=== PATIENT | male | born 1935 | race Caucasian/White ===

== ENCOUNTER 2016-10-05 10:36 | Inpatient (IN) | payer MEDICARE ==
[~2016-10-05] VITALS: Ht 188 cm; Wt 81.6 kg
[~2016-10-05 10:36] MED LIST: FOLIC ACID 1 MG1 MG PO
[2016-10-05 11:57] LABS: HEMOGLOBIN 8.4 gm/dl (14.0-17.5); RED BLOOD COUNT 2.51 M/UL (4.20-5.50)
[2016-10-05 17:33] LABS: WHITE BLOOD COUNT 53.4 K/UL (4.5-11.0)
[2016-10-05] MEDS ORDERED: CATAPRES 0.1MG0.1 MG PO (23:55)
[2016-10-05] MEDS ORDERED: NORVASC 5 MG TAB5 MG PO (23:56)
[2016-10-05] MEDS ORDERED: AVODART 0.5 MG0.5 MG PO (23:56)
[2016-10-05] MEDS ORDERED: ALPRAZOLAM0.5 MG PO (23:58)
[2016-10-05] MEDS ORDERED: TENORMIN 50 MG50 MG PO (23:58)
[2016-10-05] MEDS ORDERED: SIMVASTATIN40 MG PO (23:59)
[2016-10-06] MEDS ORDERED: CARDURA 2MG TAB2 MG PO
[2016-10-06] MEDS ORDERED: ASPIR 8181 MG PO (00:01)
[2016-10-06] MEDS ORDERED: HYDROXYUREA500 MG PO (00:02)
[2016-10-06] MEDS ORDERED: ALDACTONE 25MG25 MG PO (00:03)
[2016-10-06 04:52] LABS: HEMOGLOBIN 8.7 gm/dl (14.0-17.5); RED BLOOD COUNT 2.58 M/UL (4.20-5.50)
[2016-10-06 05:35] LABS: WHITE BLOOD COUNT 48.4 K/UL (4.5-11.0)
[2016-10-07 04:54] LABS: HEMOGLOBIN 8.2 gm/dl (14.0-17.5); RED BLOOD COUNT 2.44 M/UL (4.20-5.50)
[2016-10-07 05:22] LABS: WHITE BLOOD COUNT 39.5 K/UL (4.5-11.0)
[2016-10-08 04:44] LABS: RED BLOOD COUNT 2.39 M/UL (4.20-5.50)
[2016-10-08 04:45] LABS: WHITE BLOOD COUNT 37.3 K/UL (4.5-11.0)
[2016-10-09 03:53] LABS: HEMOGLOBIN 7.8 gm/dl (14.0-17.5); RED BLOOD COUNT 2.34 M/UL (4.20-5.50)
[2016-10-09 04:28] LABS: WHITE BLOOD COUNT 39.1 K/UL (4.5-11.0)
[2016-10-10 06:00] LABS: HEMOGLOBIN 7.6 gm/dl (14.0-17.5); RED BLOOD COUNT 2.34 M/UL (4.20-5.50)
[2016-10-10 06:15] LABS: WHITE BLOOD COUNT 41.4 K/UL (4.5-11.0)
[2016-10-11 04:50] LABS: RED BLOOD COUNT 2.42 M/UL (4.20-5.50)
[2016-10-11] MEDS ORDERED: CATAPRES 0.1MG0.1 MG PO (12:43)
[2016-10-11] MEDS ORDERED: LASIX20 MG PO (12:44)
[2016-10-11] MEDS ORDERED: ENSURE ORIGINA237 ML PO (12:45)
[2017-02-07] MEDS ORDERED: MEGACE TAB 40 M40 MG PO (17:51)
[2017-02-07] MEDS ORDERED: LORTAB 5-325 M1 EACH PO (17:53)
[2017-02-07] MEDS ORDERED: BENADRYL 25MG C25 MG PO (17:53)
[2017-03-14] MEDS ORDERED: CARDURA 2MG TAB2 MG PO (19:59)
[2017-03-14] MEDS ORDERED: ATIVAN 1MG TABLE1 MG PO (19:59)
[2017-03-14] MEDS ORDERED: MORPHINE S10 MG/5 ML PO (20:03)
== END 2016-10-11 14:34 | disposition home or self-care (01) | DRG 193 ==
LOC: ER1 10:36 → PROG CARE 14:07 → ZEROF 14:07 → PROG CARE 22:23 → M/S 10-09 17:47
PROVIDERS: Emergency Medicine; Internal Medicine Infectious Disease; Internal Medicine Pulmonary Disease; ADMIT Internal Medicine
DX: J10.00 Influenza due to other identified influenza virus with unspecified type of pneumonia (principal); J96.21 Acute and chronic respiratory failure with hypoxia; I50.33 Acute on chronic diastolic (congestive) heart failure; I13.0 Hypertensive heart and chronic kidney disease with heart failure and stage 1 through stage 4 chronic kidney disease, or unspecified chronic kidney disease; E87.2 Acidosis; N17.9 Acute kidney failure, unspecified; C92.10 Chronic myeloid leukemia, BCR/ABL-positive, not having achieved remission; E87.5 Hyperkalemia; Z66 Do not resuscitate; D46.9 Myelodysplastic syndrome, unspecified; N18.3 Chronic kidney disease, stage 3 (moderate); D75.89 Other specified diseases of blood and blood-forming organs; J44.9 Chronic obstructive pulmonary disease, unspecified; N40.0 Benign prostatic hyperplasia without lower urinary tract symptoms; I27.2 Other secondary pulmonary hypertension; F17.210 Nicotine dependence, cigarettes, uncomplicated; D63.0 Anemia in neoplastic disease; Z90.81 Acquired absence of spleen; Z28.21 Immunization not carried out because of patient refusal; Z88.1 Allergy status to other antibiotic agents; Z79.82 Long term (current) use of aspirin; Z79.899 Other long term (current) drug therapy; Z99.81 Dependence on supplemental oxygen; Z87.442 Personal history of urinary calculi
CPT/HCPCS: ECHO; 36415; 36600; 71010; 71020; 80048; 80053; 80202; 81001; 82550; 82553; 82803; 82962; 83605; 83874; 83880; 84484; 85007; 85027; 85610; 85730; 87040; 87086; 93005; 93306; 94640; 94664; 96361; 96365; 96366; 96367; 96375; 99291; J0696; J1644; J1940; J2270; J2543; J2920; J2930; J3370; J7030; J7050; J7070